=== PATIENT | female | born 1995 | race Caucasian/White ===

== ENCOUNTER 2021-08-08 19:35 | Emergency (ER) | payer MEDICAID, OTHER ==
[~2021-08-08] VITALS: Ht 172.7 cm; Wt 81.6 kg
[~2021-08-08 19:35] MED LIST: BEN10 PO
[2021-08-08 20:06] VITALS: BP 121/92
--- NOTE | 2021-08-08 21:18 | NUR ---
Patient ambulated to bed 12.
--- NOTE | 2021-08-08 21:39 | NUR ---
26 Y/O FEMALE BIBS, C/O CP SINCE 1500. PT SAW URGENT CARE AT 1800 AND WAS ADVISED TO SEE ER. PT DESCRIBES PAIN COMES/GOES; RADIATES TO LEFT JAW, BACK, AND ARM; DULL; 7/10; HURTS MORE WITH INSPIRATION. PT STATES IT GETS WORSE WHEN SHE LAYS DOWN. PT IS AMBULATORY W/O ASSISTANCE, UNLABORED BREATHING. PT IS SEATED IN BED WITH HOB RAISED, BED IN LOWEST POSITION, AND RAIL UP X1. HX: IBS, ENDOMYTRIOSIS, GASTRITIS, AND ACID REFLUX NKA DENIES MEDS
--- NOTE | 2021-08-08 21:49 | NUR ---
Dr. Kennedy at bedside to exam patient.
[2021-08-08] MEDS ORDERED: ONDANSETRON 4 MG TAB PO ONE (21:50)
[2021-08-08] MEDS ORDERED: KETOROLAC 60 MG/2 ML VIAL IM ONE (21:50)
[2021-08-08] MEDS ORDERED: IBUP-2213 PO (22:14)
[2021-08-08] MEDS ORDERED: ONDA8TAB87 PO (22:14)
[2021-08-08 23:39] VITALS: BP 121/92
--- NOTE | 2021-08-08 23:40 | NUR ---
Patient discharged with v/s stable. Written and verbal after care instructions given and explained. Patient alert, oriented and verbalized understanding of instructions. Ambulatory with steady gait. All questions addressed prior to discharge. ID band removed. Patient advised to follow up with PMD. Rx of IBUPROFEN AND ZOFRAN given. Patient educated on indication of medication including possible reaction and side effects. Opportunity to ask questions provided and answered. VSS, A/OX4, UNLABORED BREATHING, AMBULATORY, AND CALM DEMEANOR.
== END 2021-08-08 23:40 | disposition home or self-care (01) ==
LOC: MED 19:35
DX: R07.89 Other chest pain (principal); R11.0 Nausea; K21.9 Gastro-esophageal reflux disease without esophagitis; Z98.890 Other specified postprocedural states; Z79.899 Other long term (current) drug therapy; Z79.1 Long term (current) use of non-steroidal anti-inflammatories (NSAID)
CPT/HCPCS: 93005; 96372; 99283; J1885; Q0162